=== PATIENT | male | born 1940 | race Caucasian/White ===

== ENCOUNTER → 2016-06-21 | Outpatient (CLI) | payer MEDICARE, BC ==
[~2016-06-21] VITALS: Ht 172.7 cm; Wt 59.1 kg
[~2016-06-21] MED LIST: 00186-0370-20 IH; 00186-0372-20 IH; ADOXA100 PO; ADVIL200 MG PO; ALDACTONE 25MG25 M1 PO; ALDACTONE50 MG PO; ASMANEX TW110 MCG/Ac IH; COZAAR 25MG25 MG/TAB PO; COZAAR100 MG PO; DESYREL 50MG50 MG PO; DILANTIN 100MG100 MG PO; FLOMAX 0.40.4 MG/CAP PO; FLONASE NASAL S16 GM NS; FLONASEALLERGY NS; IMURAN 50MG TAB50 MG PO; INDERAL 20MG20 MG PO; INDERAL LA 60MG60 MG PO; KEPPRA1000 MG PO; KEPPRA250 MG PO; KLOR-CON M2020 MEQ PO; LASIX 20MG TABL20 MG PO; LOPRESSOR 225 MG/TAB PO; MULTI VITAMINS1 TAB PO; NORCO 325 MG-51 TAB PO; NORVASC 10MG10 MG PO; NORVASC 5MG5 MG/TAB PO; OPSUMIT PO; PROAIR HFA0.09 MG/AC IH; RT SPIRIVA18 MCG IH; SENOKOT S 50 MG1 TAB PO; SEROQUEL 2525 MG/TAB PO; SINGULAIR 110 MG/TAB PO; TYLENOL 325MG325 MG PO; TYLENOL PM EXTR1 TA1 PO; VITAMIN D32000 I1 PO; VITAMIN D32000 IU PO; ZOFRAN INJ4 MG/2 ML IV; ZOVIRAX500 MG IV
[2016-06-21 11:32] VITALS: BP 172/89; PULSE 73
[2016-06-21 13:36] VITALS: BP 122/71; PULSE 54
== END ==
LOC: COL.RAD 11:20
DX: D33.3 Benign neoplasm of cranial nerves (principal)
CPT/HCPCS: A9585; G9654; J2704

== ENCOUNTER → 2016-07-10 | Outpatient (CLI) | payer MEDICARE, BC | LOC: COL.VAS 10:58 | DX: I08.3 Combined rheumatic disorders of mitral, aortic and tricuspid valves (principal); R94.39 Abnormal result of other cardiovascular function study; I27.2 Other secondary pulmonary hypertension ==